=== PATIENT | male | born 1960 | race Caucasian/White ===

== ENCOUNTER 2023-08-15 08:45 | Emergency (ER) | payer BC ==
[2023-08-15] MEDS: Silver Nitrate Applicator Each TOP ONE (09:22)
[2023-08-15] MEDS: Oxymetazoline 0.05% Nasal Spray 30 ML Bottle NAS ONE (09:22)
[2023-08-15] MEDS: Tranexamic Acid 1,000 MG/10 ML Vial TOP STA (09:22)
== END 2023-08-15 11:37 | disposition home or self-care (01) ==
LOC: MW.ED 08:45
DX: R04.0 Epistaxis (principal); I10 Essential (primary) hypertension; Z75.8 Other problems related to medical facilities and other health care; Z79.899 Other long term (current) drug therapy
CPT/HCPCS: 99283; A9270; J3490

== ENCOUNTER 2023-11-22 06:32 | Day surgery (SDC) | payer BC ==
[2023-11-22] MEDS: Lactated Ringers 1,000 ML IV SCH (07:03)
[2023-11-22] MEDS ORDERED: Bupivacaine 0.5% 30 ML SDV ONE (07:20)
[2023-11-22] MEDS ORDERED: fentaNYL 50 MCG/ML SDV IVPUSH PRN (07:30)
[2023-11-22] MEDS ORDERED: Ondansetron 4 MG/2 ML SDV IVPUSH PRN (07:30)
[2023-11-22] MEDS ORDERED: Naloxone 0.4 MG/ML SDV IVPUSH PRN (07:30)
[2023-11-22] MEDS ORDERED: Metoclopramide 10 MG/2 ML SDV IVPUSH PRN (07:30)
[2023-11-22] MEDS ORDERED: HYDROmorphone 1 MG/ML Syringe IVPUSH PRN (07:30)
[2023-11-22] MEDS ORDERED: Albuterol 0.083% 2.5 MG/3 ML Neb Soln NEB PRN (07:30)
[2023-11-22] MEDS ORDERED: Morphine 2 MG/ML SYRINGE IVPUSH PRN (07:30)
[2023-11-22] MEDS ORDERED: droPERidol 5 MG/2 ML SDV IVPUSH PRN (07:30)
[2023-11-22] MEDS ORDERED: Midazolam 1 MG/ML 2 ML SDV ONE (07:38)
[2023-11-22] MEDS ORDERED: Lidocaine 2% 5 ML SDV ONE (07:38)
[2023-11-22] MEDS ORDERED: fentaNYL 100 MCG/2 ML SDV ONE (07:38)
[2023-11-22] MEDS ORDERED: Propofol 200 MG/20 ML SDV ONE (07:39)
[2023-11-22] MEDS ORDERED: Rocuronium Bromide 50 MG/5 ML Syringe ONE (07:46)
[2023-11-22] MEDS ORDERED: Ondansetron 4 MG/2 ML SDV ONE (08:25)
[2023-11-22] MEDS ORDERED: Sugammadex Sodium 200 MG/2 ML VIAL IV ONE (08:25)
[2023-11-22] MEDS ORDERED: Lactated Ringers 1,000 ML IV SCH (09:30)
[2023-11-22] MEDS ORDERED: Acetaminophen/HYDROcodone 325-5 MG Tab PO PRN (09:30)
== END 2023-11-22 10:00 | disposition home or self-care (01) ==
LOC: MW.SDS 06:32
PROVIDERS: ATTEND Surgery
DX: D17.1 Benign lipomatous neoplasm of skin and subcutaneous tissue of trunk (principal); E78.5 Hyperlipidemia, unspecified; I10 Essential (primary) hypertension; E66.9 Obesity, unspecified; Z79.899 Other long term (current) drug therapy; Z87.891 Personal history of nicotine dependence; Z68.33 Body mass index [BMI] 33.0-33.9, adult
CPT/HCPCS: 21931; J0665; J2250; J2405; J2704; J3010; J3490; J7120; 00320